=== PATIENT | male | born 1990 | race African-American/Black ===

== ENCOUNTER 2017-08-12 13:12 | Emergency (ER) | payer BC, OTHER ==
[2017-08-12 13:17] VITALS: BP 122/75; PULSE 75; TEMP 97.2; BMI 30.4
[2017-08-12] MEDS ORDERED: KETOROLAC TROMETHAMINE 60 MG/2 ML VIAL IM ONE (14:00)
[2017-08-12] MEDS ORDERED: KETOROLAC TROMETHAMINE 60 MG/2 ML VIAL ONE (14:06)
--- NOTE | 2017-08-12 14:24 | PDOC ---
History of Present Illness - General Chief Complaint: Shortness of Breath Stated Complaint: SOB Time Seen by Provider: 08/12/17 13:30 History Source: Patient Exam Limitations: No Limitations - History of Present Illness Initial Comments: 08/12/17 14:34 27-year-old female presents the ED with complaints of pain to the right pectoral region. Patient states pain occurred after the items at work 3 days ago and has continued since. Patient states took nothing for the above and decided come to the ER for further evaluation. Patient states has no difficulty breathing but painful with deep inspiration. Patient denies fever, chills, chest pain, palpitations or abdominal pain. Timing/Duration: reports: other (3 days) Severity: reports: mild Possible Cause: Yes: no prior episodes Associated Symptoms: reports: other Past History - Past Medical History Allergies/Adverse Reactions: Allergies Allergy/AdvReac Type Severity Reaction Status Date / Time No Known Allergies Allergy Verified 08/12/17 13:17 Home Medications: Ambulatory Orders Lacosamide [Vimpat -] 200 mg PO BID 08/30/14 Lamotrigine [Lamictal] 250 mg PO BID 08/30/14 COPD: No Seizures: Yes - Immunization History Immunization Up to Date: Yes - Suicide/Smoking/Psychosocial Hx Smoking History: Never smoked Hx Alcohol Use: Yes (occasion) Substance Use Type: None Patient Lives Alone: No Lives with/in: parents Review of Systems - Review of Systems Able to Perform ROS?: Yes Respiratory: No: Symptoms reported ABD/GI: No: Symptoms Reported Musculoskeletal: Yes: Muscle Pain (rt pectoral) Integumentary: No: Symptoms Reported, Rash Neurological: No: Symptoms reported *Physical Exam - Vital Signs Last Vital Signs Temp Pulse Resp BP Pulse Ox 97.2 F L 75 18 122/75 99 08/12/17 13:15 08/12/17 13:15 08/12/17 13:15 08/12/17 13:15 08/12/17 13:15 - Physical Exam General Appearance: Yes: Nourished, Appropriately Dressed. No: Apparent Distress HEENT: positive: EOMI, JAY JAY. negative: Pale Conjunctivae Neck: positive: Supple. negative: Tender, Decreased range of motion Respiratory/Chest: positive: Chest Tender (rt pectoral over 7-9 th rib at MCL) ED Treatment Course - Medications Given in the ED: ED Medications Discontinued Medications Generic Name Dose Route Start Last Admin Trade Name David PRN Reason Stop Dose Admin Ketorolac Tromethamine 60 mg 08/12/17 14:00 08/12/17 14:09 Toradol Injection - IM 08/12/17 14:01 60 mg ONCE ONE Administration Medical Decision Making - Medical Decision Making 08/12/17 14:38 Patient with a right-sided chest pain. Patient reproducible pain on exam. Patient ordered for Toradol IM and if no relief will consider x-ray to rule out atypical pneumonia although patient has no complaints of cough or fever. 08/12/17 14:54 patient with minimal relief After receiving Toradol X-ray shows no acute chest pathology. Patient with questionable calcification the left first rib. No sign of infiltrate or failure. Normal heart. Patient be discharged home with recommendations to take Motrin 600 mg every 8 hours. Patient recommended to apply ice to the affected area. 08/12/17 14:54 *DC/Admit/Observation/Transfer Diagnosis at time of Disposition: Strain of right pectoralis muscle Qualifiers: Encounter type: initial encounter Qualified Code(s): S29.011A - Strain of muscle and tendon of front wall of thorax, initial encounter - Discharge Dispostion Disposition: HOME Condition at time of disposition: Good - Referrals - Patient Instructions Printed Discharge Instructions: DI for Muscle Strain Additional Instructions: Please take Motrin 600 mg every 8 hours for discomfort. Please apply ice to the affected area and avoid movements that trigger your discomfort. Otherwise return to ED if symptoms worsen despite recommendation above. - Post Discharge Activity
[2017-08-12] MEDS ORDERED: DIPHTH,PERTUSS(ACELL),TET 0.5 ML DISP.SYRIN IM ONE (14:28)
== END 2017-08-12 15:05 | disposition home or self-care (01) ==
LOC: JERFT 13:12
PROC: 3E0233Z Introduction of Anti-inflammatory into Muscle, Percutaneous Approach (ICD-10-PCS; principal; 2017-08-12)
DX: S29.011A Strain of muscle and tendon of front wall of thorax, initial encounter (principal); X58.XXXA Exposure to other specified factors, initial encounter; Y93.89 Activity, other specified; Y92.9 Unspecified place or not applicable
CPT/HCPCS: 71010-TC; 99281-25